=== PATIENT | female | born 1940 | race Caucasian/White ===

== ENCOUNTER 2017-02-11 04:46 | Inpatient (IN) ==
[2017-02-11] MEDS ORDERED: SODIUM CHLORIDE 0.9% 500 ML IV STA (05:19)
--- NOTE | 2017-02-11 05:30 | Emergency Department Note ---
Ahmet Sims Hilary, am scribing for, and in the presence of, Moses Fields MD 05:21. Donnie Sims Robert M, MD, personally performed the services described in this documentation, ascribed by Amairani Leo in my presence, and it is both accurate and complete 530 . Arrival - Arrival Chief Complaint: GI Bleed/Rectal ED Nursing Triage Note: Patient is a transfer from [facility] for GI bleed. States that patient began bleeding yesterday evening with bloody stools becoming progressi Patient has a hisotry of HTN, afib, anemia, diverticulitis and head and neck cancer. Mode of Arrival: Stretcher Limitations: Altered Mental Status Source: Patient, RN Notes Reviewed - History of Present Illness HPI Narrative: Pt is a 76 y/o white female brought into the as a transfer from [facility] for c/o a GI bleed. Pt is an extremely poor historian so hx is limited. Staff states that she has had two large bloody stools but pt is demented and cannot add to it. Onset (ago): hour(s) Date of Last Menstrual Period: menopause Allergies/Adverse Reactions: Allergies Allergy/AdvReac Type Severity Reaction Status Date / Time Oyycrrz-Byj-Yvd Reductase Allergy Severe Irritable Verified 09/20/16 15:00 Inhibitor meloxicam Allergy Unknown Unknown/Unable Verified 09/29/16 15:38 to obtain nitrofurantoin Allergy Unknown Unknown/Unable Verified 09/20/16 14:53 [From Macrodantin] to obtain Penicillins Allergy Unknown Unknown/Unable Verified 09/20/16 14:54 to obtain FLUCODANTIN Allergy Unknown Unknown/Unable Uncoded 09/20/16 14:59 to obtain Home Medications: Home Medications Medication Instructions Recorded Confirmed Type Venlafaxine [Effexor] 37.5 mg PO DAILY 09/23/16 02/04/17 History Omeprazole [Prilosec] 40 mg PO DAILY 09/28/16 02/04/17 History Fluticasone 50 Mcg Nasal [place] 2 spray BOTH NARES DAILY 09/29/16 02/04/17 History [Flonase Nasal [place]] Aspirin [Ecotrin] 81 mg PO DAILY 02/01/17 02/04/17 History Clorazepate [Tranxene] 7.5 mg PO Q8H 02/01/17 02/04/17 History Ferrous Sulfate [Iron] 325 mg PO DAILY 02/01/17 02/04/17 History Ibuprofen 200 mg PO DAILY 02/01/17 02/04/17 History Apixaban [Eliquis] 2.5 mg PO BID tablet 02/04/17 02/04/17 Rx Diltiazem Cd Cap [Cardizem CD] 120 mg PO DAILY capsule 02/04/17 02/04/17 Rx Diphenoxylate/Atrop 2.5-0.025 1 tablet PO BID tablet 02/04/17 02/04/17 Rx [Lomotil Tab] Lactobacillus Acidoph/Bulgar 1 tablet PO BID tablet 02/04/17 02/04/17 Rx [Lactinex Chew Tab] Review of System - Review of System ROS unobtainable: due to dementia Medical,Surgical,& Family Hx - Medical History Cardio: History of: Cardiac Dysrhythmia (A. 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 FORMER SMOKER) Genitourinary: History of: Recurring Urinary Tract Infections Gastrointestinal: History of: GERD, GI Problems (FEMORAL HERNIA) Musculoskeletal: History of: Musculoskeletal Problems (HX STAPH JAW) - Surgical History HEENT Surgeries: Surgical HX of: Tonsilectomy & Adenoidectomy Abdominal Surgeries: Surgical HX of: Appendectomy, Hernia Repair (HITAL) - Family History Family History: Reports;: Family Cancer (father - lung), Family Diabetes (father ), Family Heart Disease (mother), Family Hypertension Denies;: Family Psychiatric Problems, Family Stroke - Social History Smoking Status: Former smoker Frequency of Alcohol Use: None Type of Drug Use: None Exam Vital Signs: Vital Signs Temperature 99.9 F H 02/11/17 04:55 Pulse Rate 91 H 02/11/17 04:55 Respiratory Rate 20 02/11/17 04:55 Blood Pressure 171/54 02/11/17 04:55 O2 Sat by Pulse Oximetry 99 02/11/17 04:55 - General Exam limited due to: other (Dementia) General appearance: alert, in no apparent distress - Head Head exam: Present: atraumatic, normocephalic - Eye Eye exam: Present: normal appearance, PERRL, EOMI - ENT ENT exam: Present: mucous membranes moist, TM's normal bilaterally. Absent: mucous membranes dry - Neck Neck exam: Present: full ROM, trachea midline. Absent: tenderness - Chest Chest inspection: Present: symmetric chest wall rise. Absent: tenderness - Respiratory Respiratory exam: Present: normal lung sounds bilaterally. Absent: respiratory distress - Cardiovascular Cardiovascular exam: Present: regular rate, normal rhythm, normal heart sounds. Absent: murmur, rubs, gallop - Abdominal Exam Abdominal exam: Present: soft, distention (protuberant), normal bowel sounds. Absent: tenderness - Extremities Exam Extremities exam: Present: full ROM. Absent: tenderness - Back Exam Back exam: Present: full ROM. Absent: tenderness - Neurological Exam Neurological exam: Present: alert, CN II-XII intact - Psychiatric Psychiatric exam: Present: normal affect, normal mood - Skin Skin exam: Present: warm, dry, intact, normal color. Absent: rash Course - Consultations Consultation #1: The patient will be admitted to the hospitalist service. Time: 05:31 Results - Labs CBC & BMP: 02/11/17 05:15 Lab Results: I have reviewed the patients labs Disposition Clinical Impression: Lower GI bleed, Floor of mouth squamous cell carcinoma, Hypokalemia, Debility, Anemia Case discussed with: patient, patient's family Disposition: Still a Patient Condition: Stable Instructions: Gastrointestinal Bleeding (ED) Time of Disposition: 05:31
[2017-02-11 05:37] LABS: Basophils % 0.2 % (0.0-0.8); Eosinophils # 0.2 10*3/uL (0.0-0.87); Eosinophils % 2.1 % (0.00-10.9); Hematocrit 29.9 VOL% (35.7-47.0); Hemoglobin 9.6 GM/DL (12.0-16.0); Immature Granulocytes % 0.8 %; Immature Granulocytes Absolute 0.07 #; Lymphocytes # 0.5 10*3/uL (1.4-4.0); Lymphocytes % 5.2 % (21.3-54.2); Mean Corpuscular HGB Conc 32.1 GM/DL (32-36); Mean Corpuscular Hemoglobin 26 PG (27-34); Mean Corpuscular Volume 79.5 FL (87-102); Monocytes # 0.6 10*3/uL (0.11-0.8); Monocytes % 6.4 % (1.7-12.7); Neutrophils # 7.7 10*3/uL (1.4-7.4); Neutrophils % 85.3 % (38.7-73.9); Platelet Count 282 T/CUMM (130-400); Red Blood Count 3.76 MC/CUMM (3.8-5.5); Red Cell Distribution Width 19.4 % (9.3-17.3)
[2017-02-11 05:41] LABS: INR 1.2; PT Patient Result 12.3 SECS
[2017-02-11 05:56] LABS: Alanine Aminotransferase 10 U/L (13-56); Alkaline Phosphatase 50 U/L (45-117); Aspartate Amino Transferase 13 U/L (0-37); Bilirubin,Total < 0.39 MG/DL (0.2-1.0); Blood Urea Nitrogen 21 MG/DL (7-18); Calcium 8.7 MG/DL (8.5-10.1); Glucose 92 MG/DL (74-106); Osmolality,Calculated 275.8 MOS/KG (273-304); Potassium 3.9 MMOL/L (3.5-5.1); Sodium 137 MMOL/L (136-145); Total Protein 5.1 G/DL (6.4-8.3)
[2017-02-11] MEDS ORDERED: ACETAMINOPHEN 325 MG TABLET PO PRN (06:02)
[2017-02-11] MEDS ORDERED: ALBUTEROL 2.5 MG/3 ML NEB RESP TX PRN (06:02)
--- NOTE | 2017-02-11 06:12 | Hospitalist History & Physical ---
Assessment and Plan (1) Underweight Status: Chronic Current Visit: No (2) Anemia Status: Acute Current Visit: Yes (3) Debility Status: Acute Current Visit: Yes (4) Atrial fibrillation Status: Acute Current Visit: No (5) Lower GI bleed Status: Acute Assessment and plan: Our plan for this patient will be admitting her to the ICU. Go to hold her Eliquis. And restart her home medications once they are confirmed as appropriate. Will consult Dr. Lott to reevaluate the patient and see if she he thinks she needs colonscope evaluation for her GI bleed. We will draw serial H&H's and transfuse as needed Current Visit: Yes History of Present Illness Chief complaint: Maroon stools History of present illness: Ms. Blackwell is a 76 year old female with past medical history significant for irritable bowel syndrome, diverticulosis, carcinoma of the throat, hypertension , A. fib with, and recent admission to the hospital for diarrhea who presents to our hospital tonight as a transfer from [facility]. Patient was admitted to our hospital several days ago. She was admitted with A. fib with RVR and diarrhea. She was rate controlled and placed on Eliquis. She was transferred to [facility]. She is being transferred down for rehab. Patient supports historian. Apparently staff at these [facility] noted to large maroon bloody stools. Patient was transferred to our hospital for further evaluation I was consulted for admission. Home Medications Medication Instructions Recorded Confirmed Type Venlafaxine [Effexor] 37.5 mg PO DAILY 09/23/16 02/04/17 History Omeprazole [Prilosec] 40 mg PO DAILY 09/28/16 02/04/17 History Fluticasone 50 Mcg Nasal [place] 2 spray BOTH NARES DAILY 09/29/16 02/04/17 History [Flonase Nasal [place]] Aspirin [Ecotrin] 81 mg PO DAILY 02/01/17 02/04/17 History Clorazepate [Tranxene] 7.5 mg PO Q8H 02/01/17 02/04/17 History Ferrous Sulfate [Iron] 325 mg PO DAILY 02/01/17 02/04/17 History Ibuprofen 200 mg PO DAILY 02/01/17 02/04/17 History Apixaban [Eliquis] 2.5 mg PO BID tablet 02/04/17 02/04/17 Rx Diltiazem Cd Cap [Cardizem CD] 120 mg PO DAILY capsule 02/04/17 02/04/17 Rx Diphenoxylate/Atrop 2.5-0.025 1 tablet PO BID tablet 02/04/17 02/04/17 Rx [Lomotil Tab] Lactobacillus Acidoph/Bulgar 1 tablet PO BID tablet 02/04/17 02/04/17 Rx [Lactinex Chew Tab] Allergies Allergy/AdvReac Type Severity Reaction Status Date / Time Iqvjerw-Fmi-Gwo Reductase Allergy Severe Irritable Verified 09/20/16 15:00 Inhibitor meloxicam Allergy Unknown Unknown/Unable Verified 09/29/16 15:38 to obtain nitrofurantoin Allergy Unknown Unknown/Unable Verified 09/20/16 14:53 [From Macrodantin] to obtain Penicillins Allergy Unknown Unknown/Unable Verified 09/20/16 14:54 to obtain FLUCODANTIN Allergy Unknown Unknown/Unable Uncoded 09/20/16 14:59 to obtain Medical,Surgical,& Family Hx - Medical History Cardio: History of: Cardiac Dysrhythmia (A. 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 FORMER SMOKER) Genitourinary: History of: Recurring Urinary Tract Infections Gastrointestinal: History of: GERD, GI Problems (FEMORAL HERNIA) Musculoskeletal: History of: Musculoskeletal Problems (HX STAPH JAW) - Surgical History HEENT Surgeries: Surgical HX of: Tonsilectomy & Adenoidectomy Abdominal Surgeries: Surgical HX of: Appendectomy, Hernia Repair (HITAL) - Family History Family History: Reports;: Family Cancer (father - lung), Family Diabetes (father ), Family Heart Disease (mother), Family Hypertension Denies;: Family Psychiatric Problems, Family Stroke - Social History Smoking Status: Former smoker Frequency of Alcohol Use: None Type of Drug Use: None ROS unobtainable: due to dementia Exam - Constitutional Vitals: Period Temp Pulse Resp BP Sys/Guzman Pulse Ox Last 24 Hr 99.9 F-99.9 F 91-91 16-20 171-171/54-54 99 - General General appearance: alert, in no apparent distress - Head Head exam: Present: atraumatic, normocephalic - Eye Eye exam: Present: normal appearance, PERRL, EOMI - ENT ENT exam: Present: mucous membranes moist, TM's normal bilaterally. Absent: mucous membranes dry - Neck Neck exam: Present: full ROM, trachea midline. Absent: tenderness - Chest Chest inspection: Present: symmetric chest wall rise. Absent: tenderness - Respiratory Respiratory exam: Present: normal lung sounds bilaterally. Absent: respiratory distress - Cardiovascular Cardiovascular exam: Present: regular rate, normal rhythm, normal heart sounds. - Abdominal Exam Abdominal exam: Present: Mild abdominal tenderness appreciated - Extremities Exam Extremities exam: Present: full ROM. Absent: tenderness - Back Exam Back exam: Present: full ROM. Absent: tenderness - Neurological Exam Neurological exam: Present: alert, CN II-XII intact - Psychiatric Psychiatric exam: Present: normal affect, normal mood - Skin Skin exam: Present: warm, dry, intact, normal color. Absent: rash Results - Labs CBC & BMP: 02/11/17 05:15 02/11/17 05:15
[2017-02-11 06:43] LABS: Hypochromasia 2+
--- NOTE | 2017-02-11 06:47 | XRay Report ---
XR chest 1V portable Indication: Shortness of breath Comparison: None available Findings: The heart and mediastinum are normal in size and configuration. The pulmonary vascularity is normal in caliber. Lung volumes are increased with prominent bronchial markings. No lung infiltrates, effusions, pneumothorax or other abnormality is demonstrated. Impression: Chronic lung changes. No acute process. PROCEDURE INTERPRETED AT [facility] DEPARTMENT OF RADIOLOGY Final Report Signed by: Dr. Xander Hamlin
--- NOTE | 2017-02-11 09:06 | Operative Note ---
Date of procedure: 02/11/17 Pre-op diagnosis: Anemia with drop in hematocrit from 34-->29.9%, maroon stool Post-op diagnosis: other (No clear bleeding source seen in the esophagus/ stomach or duodenum. There was a single erosion that was biopsied and we will look for Helicobacter pylori as well as celiac sprue given this patient's malnutrition. Successful dilation of the esophagus to 54 Danish due to her low- grade dysphagia.) Procedure: PROCEDURE: Esophagogastroduodenoscopy (EGD) with cold biopsy for pathology and Savary dilation to 54 Danish by single pass Savary dilator REFERRING PHYSICIAN: Warner Meraz MD INDICATIONS: This patient last seen in consultation 02/02/17 with diarrhea, dysphagia, moderate malnutrition, and anemia. Her hematocrit at that time was 34% and she was not taken to upper or lower endoscopy. She was given Eliquis for atrial fibrillation and has started developing maroon stools. Workup now being initiated to follow this low-grade anemia since her hematocrit has decreased to 29.9%. The prior H&P was reviewed and interrim changes are as noted: ENDOSCOPIST: Mushtaq Lott MD ENDOSCOPE: Olympus Video 100 System upper endoscope ASA CLASS: 4E EXAM: CV: regular rate and rhythm respiratory: Clear without wheezes abdominal: active bowel sounds MEDICATION: Per nursing anesthesia protocol, see their notes PROCEDURE: After discussion of the potential risks and benefits of upper endoscopy, the informed consent was obtained. The patient was then placed in the left lateral decubitus position where sedation was achieved as noted above. Esophageal intubation was performed without difficulty, and the endoscope was advanced through the esophagus, stomach and duodenum. A slow withdrawal was then performed with retroflexion in the stomach for careful inspection of the incisura angularis, fundus and cardia. The scope was then returned to a neutral position and withdrawn through the esophagus. The patient tolerated the procedure well and without complication. BIOPSIES: Gastric antrum/body, duodenum PHOTOGRAPHS: Obtained FINDINGS: Hypopharynx and Larynx: Normal Esohagoscopy Upper and middle thirds: Normal Lower third normal Esophogastric junctions: Normal without evidence of stricturing, Espinosa 's or esophagitis. At the end of the case the patient was dilated to 54 Danish by single pass Savary dilator due to her history of dysphagia. There was basically no resistance and no heme noted on the dilator. Gastroscopy: Cardia/Fundus: Normal Body: Single erosion, biopsied otherwise mild patchy gastritis Antrum and pylorus mild patchy gastritis, biopsied no clear bleeding source, wire advanced into the stomach at the end of the case to facilitate Savary dilation above. Duodenoscopy: Bulb normal-appearing, no evidence of blood, biopsied for sprue Second and third portions: Normal-appearing, biopsied for sprue IMPRESSION: No clear bleeding source seen in the esophagus/stomach or duodenum. There was a single erosion that was biopsied and we will look for Helicobacter pylori as well as celiac sprue given this patient's malnutrition. Successful dilation of the esophagus to 54 Danish due to her low-grade dysphagia. RECOMMENDATIONS: Follow up for biopsy results in 1-2 weeks by phone [phone] Continue anti-gastroesophageal reflux measures (avoid carbonated and acidic beverages, avoid eating within 2 hours of bedtime, avoid tight fitting clothing , and elevate the front bed posts 6 inches prior to sleeping. We will have to leave the patient on a clear liquid diet and obtain consent for colonoscopy to occur on Tuesday. Observe the patient's hematocrit and transfuse as necessary over the weekend. Hold Eliquis for the present time. Patient has known history of diverticulosis and this may certainly be a diverticular bleed but we need to rule out colon cancer as well. Mushtaq Lott MD COPY TO: Warner Meraz MD Anesthesia: MAC Surgeon / Physician: Mushtaq Lott Estimated blood loss: minimal Specimens: other (Gastric antrum/body, duodenum) Condition: stable Disposition: post procedure unit (G.I. Suite) Results - Labs CBC & BMP: 02/11/17 05:15 02/11/17 05:15 Discharge Plan - Discharge Medications No Action Venlafaxine [Effexor] 37.5 mg PO DAILY Omeprazole [Prilosec] 40 mg PO DAILY Fluticasone 50 Mcg Nasal [place] [Flonase Nasal [place]] 2 spray BOTH NARES DAILY Clorazepate [Tranxene] 7.5 mg PO Q8H Ibuprofen 200 mg PO DAILY Ferrous Sulfate [Iron] 325 mg PO DAILY Aspirin [Ecotrin] 81 mg PO DAILY Apixaban [Eliquis] 2.5 mg PO BID tablet Diltiazem Cd Cap [Cardizem CD] 120 mg PO DAILY capsule Diphenoxylate/Atrop 2.5-0.025 [Lomotil Tab] 1 tablet PO BID tablet Lactobacillus Acidoph/Bulgar [Lactinex Chew Tab] 1 tablet PO BID tablet - Follow Up or Referral - Forms/Instructions Instructions: Gastrointestinal Bleeding (ED)
--- NOTE | 2017-02-11 09:13 | Anesthesia Post-Op ---
Anesthesia Post OP - Post Ansesthetic Evaluation Patient seen in post op: Yes Resp: within normal limits CV: within normal limits Mental: within normal limits Temp: within normal limits [id number]: within normal limits Nausea and Vomiting: within normal limits Pain: within normal limits Other:: Stable
--- NOTE | 2017-02-11 09:23 | Gastrointestinal Progress Note ---
Assessment and Plan (1) GI bleeding Status: Acute Assessment and plan: Please see my previous consultation done 2 weeks ago (02/02/17) on this patient for full details of her history and workup up to this point. Unlike on the patient's last admission the patient, she is having active bleeding at this time with maroon colored stools. It was unclear as to whether this was a brisk upper GI source versus lower GI source. Upper endoscopy has been performed at this time and the following was discovered: No clear bleeding source seen in the esophagus/stomach or duodenum. There was a single erosion that was biopsied and we will look for Helicobacter pylori as well as celiac sprue given this patient's malnutrition. Successful dilation of the esophagus to 54 [place] due to her low-grade dysphagia. We will need to have her on clear liquids over the weekend and prep her Tuesday for colonoscopy to occur on Tuesday. This bleeding was likely secondary to the Eliquis that she was given to treat her atrial fibrillation. Would suggest keeping this on hold until we can complete colonoscopy. Current Visit: Yes (2) Oropharyngeal dysphagia Status: Acute Assessment and plan: The patient was dilated to 54 [place] today to see whether this would help out with her dysphagic symptoms. She did appear to have slight amount of increased tone with insertion of the scope with the oropharynx, we did not experience any significant stricturing or resistance in the insertion of the 54 [place] Savary dilator. We will watch and see how she does with her clear liquids and other foods later in the admission. 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 Current Visit: Yes (4) Moderate malnutrition Status: Chronic Assessment and plan: Will observe her food intake over the next several days. In my opinion she does not require PEG tube yet but should receive supplements after her colonoscopy, to occur on Tuesday. Current Visit: No Gastroenterology - PN: Subj Interval history: Please see my consultation from 02/02/17 and follow-up note from 02/03/17 concerning this patient. Diya remains a very pleasant but highly demented 76- year-old white female who had been evaluated with dysphagia and nutrition as well as anemia to hematocrit of 34% on her last admission approximately 2 weeks ago. It was elected not to formally scope her above or below given the low- grade anemia and she was transferred over to [facility] to regain her strength. Unfortunately yesterday she started developing some maroon stools and had to be transferred back for GI workup. It was not known whether the blood was coming from above or below and so upper endoscopy was just performed today. The patient is having mild epigastric tenderness. She always has a slight amount of difficulty with swallowing and dilation was performed today. Exam (Progress Note) - Constitutional Vitals: Period Temp Pulse Resp BP Sys/Guzman Pulse Ox Last 24 Hr 99.9 F-99.9 F 88-100 16-20 118-171/51-084 94-100 General appearance: no acute distress - Head Head exam: Present: normocephalic - Eye Eye exam: Present: EOMI Pupils: Present: JADYN - Respiratory Respiratory exam: Present: clear to auscultation bilaterally - Cardiovascular Cardiovascular exam: Present: regular rate and rhythm - GI/Abdominal GI/Abdominal exam: Present: normal bowel sounds, tenderness (Epigastric region) , soft. Absent: distended, guarding, rebound - Extremities Exam Extremities exam: Absent: edema - Neurological Exam Neurological exam: Present: alert, altered (Patient is very demented but certainly can converse fluently, she has very bad recall) - Psychiatric Psychiatric exam: Present: normal affect, normal mood - Skin Skin exam: Present: warm Results - Labs CBC & BMP: 02/11/17 05:15 02/11/17 05:15 Specialty Discharge - Follow Up or Referrals
[2017-02-11 10:25] LABS: Hematocrit 29.1 VOL% (35.7-47.0)
[2017-02-11] MEDS: PANTOPRAZOLE 40 MG VIAL IV SCH ×2 (11:42→19:59)
--- NOTE | 2017-02-11 11:43 | Hospitalist Progress Note ---
Assessment and Plan (1) GI bleeding Status: Acute Assessment and plan: EGD shows no clear source of bleeding there is one single erosion that was biopsied. She had successful dilatation of esophagus. Colonoscopy on Tuesday Current Visit: Yes (2) Acute blood loss anemia Status: Acute Assessment and plan: Patient's hemoglobin has been stable at 9. Will write an as needed transfusion order if less than 8 will need 2 units. Current Visit: Yes (3) Moderate malnutrition Status: Chronic Assessment and plan: clear liquids for now Current Visit: No (4) Hypertension Status: Chronic Assessment and plan: will restart dilt 120 Current Visit: No (5) Oropharyngeal dysphagia Status: Acute Assessment and plan: Patient was noted to have a stricture on EGD which has been dilated Current Visit: Yes (6) Atrial fibrillation Status: Acute Assessment and plan: currently on diltiazem, asa and eliquis Current Visit: No Hospitalist: Subjective Interval history: Patient is awake and alert after her procedure. She will remain on clear liquids. We plan for a colonoscopy on Tuesday. We will continue to do serial hemoglobins. Based on the results of the EGD no active bleeding where was found. Discussed CODE STATUS with patient's daughter but she was unaware of what her living will set. She will review it and get back to us sometime today. Exam - Constitutional Vitals: Period Temp Pulse Resp BP Sys/Guzman Pulse Ox Last 24 Hr 99.9 F-99.9 F 80-100 16-22 118-171/48-084 94-100 Exam: Heart Rate-[RRR] Lungs-[CTAB] GI-[+bs soft, NT] Ext-[no edema] Neuro [Motor 5/5], [alert and oriented times 3] psych [normal mood and affect] General [no acute distress] Results - Labs CBC & BMP: 02/11/17 10:18 02/11/17 05:15 Lab Results: I have reviewed the past 24 hour labs - Diagnostic Findings Procedure: Chest x-ray: report reviewed by me (copd) Specialty Discharge - Follow Up or Referrals
[2017-02-11] MEDS ORDERED: SODIUM CHLORIDE 0.9% 250 ML IV PRN (11:46)
[2017-02-11 13:35] LABS: Hematocrit 28.5 VOL% (35.7-47.0)
[2017-02-11] MEDS: VENLAFAXINE 37.5 MG TABLET PO SCH (16:32)
[2017-02-11] MEDS: DILTIAZEM CD 120 MG CAPSULE PO SCH (16:32)
[2017-02-11 17:21] LABS: Hematocrit 30.2 VOL% (35.7-47.0); Hemoglobin 9.4 GM/DL (12.0-16.0)
[2017-02-11] MEDS: DESITIN 4OZ/NYSTATIN 15 GRAM MIXTURE PASTE TOP SCH (20:33)
[2017-02-11] MEDS ORDERED: MAGNESIUM CITRATE 300 ML BOTTLE PO ONE (21:00)
[2017-02-11 22:31] LABS: Hematocrit 28.9 VOL% (35.7-47.0); Hemoglobin 9.1 GM/DL (12.0-16.0)
[2017-02-12 04:38] LABS: Basophils % 0.6 % (0.0-0.8); Eosinophils # 0.1 10*3/uL (0.0-0.87); Eosinophils % 2.6 % (0.00-10.9); Hematocrit 29.8 VOL% (35.7-47.0); Hemoglobin 9.5 GM/DL (12.0-16.0); Immature Granulocytes % 0.9 %; Immature Granulocytes Absolute 0.05 #; Lymphocytes # 0.5 10*3/uL (1.4-4.0); Lymphocytes % 9.6 % (21.3-54.2); Mean Corpuscular HGB Conc 31.9 GM/DL (32-36); Mean Corpuscular Hemoglobin 26 PG (27-34); Mean Platelet Volume 10.2 FL (9.6-12.0); Monocytes # 0.7 10*3/uL (0.11-0.8); Monocytes % 12.8 % (1.7-12.7); Neutrophils # 3.9 10*3/uL (1.4-7.4); Neutrophils % 73.5 % (38.7-73.9); Platelet Count 290 T/CUMM (130-400); Red Blood Count 3.68 MC/CUMM (3.8-5.5); Red Cell Distribution Width 19.3 % (9.3-17.3); White Blood Count 5.3 T/CUMM (4-12)
[2017-02-12 05:17] LABS: Calcium 8.4 MG/DL (8.5-10.1); Osmolality,Calculated 276.5 MOS/KG (273-304); Potassium 3.8 MMOL/L (3.5-5.1)
[2017-02-12 05:31] LABS: Band Neutrophils 6 % (0-10); Eosinophils 1 % (0-10); Lymphocytes 10 % (20-55); Platelet Estimate Normal; Segmented Neutrophils 75 % (50-85); Total Cells Counted 100
[2017-02-12] MEDS: DILTIAZEM CD 120 MG CAPSULE PO SCH (08:48)
[2017-02-12] MEDS: VENLAFAXINE 37.5 MG TABLET PO SCH (08:49)
[2017-02-12] MEDS: PANTOPRAZOLE 40 MG VIAL IV SCH ×2 (08:49→20:29)
[2017-02-12] MEDS: DESITIN 4OZ/NYSTATIN 15 GRAM MIXTURE PASTE TOP SCH ×2 (08:56→20:33)
[2017-02-12] MEDS: FLUTICASONE 50 MCG NASAL SPRAY 16 GM BOTTLE BOTH NARES SCH (08:57)
--- NOTE | 2017-02-12 10:58 | Event Note ---
Chief complaint GI bleed Patient is alert without complaints of any pain. No bleeding is been reported EGD yesterday was unrevealing and plans for colonoscopy for Tuesday are noted. Her hematocrit has remained stable overnight. She is tolerating p.o. liquids without complaint. Review of systems no shortness of breath or chest pain On exam vital signs are stable as recorded in the record Sclerae anicteric She is alert and oriented 3 Lungs clear to auscultation no respiratory distress Heart regular rate and rhythm no murmur, no edema Abdomen soft nondistended nontender no masses Extremities no clubbing cyanosis or edema all 4 extremities Recommendations: Continue to observe for signs symptoms of active bleeding transfuse as needed proceed with plans for colonoscopy on Tuesday.
--- NOTE | 2017-02-12 13:57 | Hospitalist Progress Note ---
Assessment and Plan (1) GI bleeding Status: Acute Assessment and plan: s/p EGD and Colonoscopy on Tuesday Current Visit: Yes (2) Acute blood loss anemia Status: Acute Assessment and plan: Patient's hemoglobin has been stable at 9. will move out of CCU Current Visit: Yes (3) Moderate malnutrition Status: Chronic Assessment and plan: clear liquids per dr. Lott Current Visit: No (4) Hypertension Status: Chronic Assessment and plan: controlled Current Visit: No (5) Oropharyngeal dysphagia Status: Acute Assessment and plan: s/p dilation of stricture Current Visit: Yes (6) Atrial fibrillation Status: Acute Assessment and plan: cont dilt, hold asa and eliquis Current Visit: No Hospitalist: Subjective Interval history: hgb stable, colonoscopy on Tuesday Exam - Constitutional Vitals: Period Temp Pulse Resp BP Sys/Guzman Pulse Ox Last 24 Hr 97.2 F-99.3 F 75-98 14-26 101-138/43-73 95-99 Exam: Heart Rate-[RRR] Lungs-[CTAB] GI-[+bs soft, NT] Ext-[no edema] Neuro [Motor 5/5], [alert and oriented times 3] psych [normal mood and affect] General [no acute distress] Results - Labs CBC & BMP: 02/12/17 04:14 02/12/17 04:14 Lab Results: I have reviewed the past 24 hour labs Specialty Discharge - Follow Up or Referrals
--- NOTE | 2017-02-13 08:11 | Hospitalist Progress Note ---
Assessment and Plan (1) Acute blood loss anemia Status: Acute Current Visit: Yes (2) Lower GI bleed Status: Acute Current Visit: Yes (3) Atrial fibrillation Status: Acute Current Visit: No Qualifiers: Atrial fibrillation type: paroxysmal Qualified Code(s): I48.0 - Paroxysmal atrial fibrillation (4) Hypertension Status: Chronic Current Visit: No (5) Moderate malnutrition Status: Chronic Assessment and plan: -Blood count stable, continue to monitor hematocrit -Patient scheduled for colonoscopy in a.m. -Continue clear liquids -Continue current medications, including diltiazem, pulse rate currently controlled -Hold Eliquis and aspirin due to GI bleeding Current Visit: No Hospitalist: Subjective Interval history: The patient is an 76-year-old female admitted to the hospital with acute lower GI bleed associated with anticoagulation with Eliquis. The patient also has Alzheimer's dementia and is a poor historian. She denies any further bleeding overnight. She is undergone an EGD during the hospitalization which did not reveal any evidence of upper GI bleeding. Colonoscopy is scheduled for tomorrow. At the time of my examination the patient denies any abdominal pain, chest pain, shortness of breath or hematochezia. Exam - Constitutional Vitals: Period Temp Pulse Resp BP Sys/Guzman Pulse Ox Last 24 Hr 96.2 F-98.7 F 65-95 16-22 101-159/46-76 90-98 General appearance: under weight, cachectic - Head Head exam: Present: normal inspection - Eye Eye exam: Present: EOMI Pupils: Present: JADYN - ENT ENT exam: Present: normal exam, normal oropharynx - Neck Neck exam: Present: normal inspection - Respiratory Respiratory exam: Present: clear to auscultation bilaterally. Absent: chest wall tenderness, rhonchi, wheezes - Cardiovascular Cardiovascular exam: Present: regular rate and rhythm. Absent: irregular rhythm , tachycardia - GI/Abdominal GI/Abdominal exam: Present: normal bowel sounds, soft. Absent: ascites, distended, tenderness - Extremities Exam Extremities exam: Present: normal inspection. Absent: edema - Neurological Exam Neurological exam: Present: altered (Patient confused, disoriented but responsive and follows commands) - Psychiatric Psychiatric exam: Absent: agitated - Skin Skin exam: Present: normal color. Absent: erythema, rash Results - Labs CBC & BMP: 02/13/17 02:25 02/12/17 04:14 Lab Results: I have reviewed the past 24 hour labs (Hemoglobin stable) Specialty Discharge - Follow Up or Referrals
[2017-02-13] MEDS: VENLAFAXINE 37.5 MG TABLET PO SCH (08:41)
[2017-02-13] MEDS: FLUTICASONE 50 MCG NASAL SPRAY 16 GM BOTTLE BOTH NARES SCH (08:41)
[2017-02-13] MEDS: BISACODYL 5 MG TABLET PO SCH ×2 (08:41→16:46)
[2017-02-13] MEDS: PANTOPRAZOLE 40 MG VIAL IV SCH ×2 (08:41→20:42)
[2017-02-13] MEDS: DILTIAZEM CD 120 MG CAPSULE PO SCH (08:42)
[2017-02-13] MEDS: DESITIN 4OZ/NYSTATIN 15 GRAM MIXTURE PASTE TOP SCH ×2 (11:32→20:43)
--- NOTE | 2017-02-13 12:11 | Event Note ---
Chief complaint GI bleeding Patient without complaints of pain she is eating her clear liquid diet without nausea vomiting no further bleeding is been reported. No blood work is been drawn on her today. Plans for colonoscopy tomorrow reaffirmed with the patient and she is agreeable. We will start her prep later today. Review of systems she denies any shortness of breath chest pain no nausea vomiting On exam vital signs are stable sclerae anicteric lids conjunctiva is unremarkable neck is supple Lungs clear to auscultation no respiratory distress Heart regular rate rhythm no murmur no edema Abdomen soft nondistended nontender no masses no ascites Extremities no clubbing cyanosis or edema all 4 extremities. Recommendations: 1. GI bleed plan for colonoscopy in a.m. with Dr. Lott prep to initiate today. Patient is agreeable to proceeding.
[2017-02-13] MEDS ORDERED: POLYETHYLENE GLYCOL POWDER 255 GM BOTTLE PO ONE (16:00)
[2017-02-13] MEDS ORDERED: MAGNESIUM CITRATE 300 ML BOTTLE PO ONE (21:00)
[2017-02-14] MEDS: BISACODYL 5 MG TABLET PO SCH (01:10)
[2017-02-14] MEDS: DILTIAZEM CD 120 MG CAPSULE PO SCH ×2 (07:36→08:13)
[2017-02-14] MEDS: PANTOPRAZOLE 40 MG VIAL IV SCH ×2 (07:36→08:13)
--- NOTE | 2017-02-14 07:56 | Operative Note ---
Date of procedure: 02/14/17 Pre-op diagnosis: Diarrhea 2-4 times per day, mild malnutrition, anemia Hgb 9 Post-op diagnosis: other (This patient appears to have pseudomembranous colitis which is involving her entire colon. There is an element of diverticulitis as well in the low sigmoid. Large internal and external hemorrhoids noted. No polyps were seen.) Procedure: PROCEDURE: Colonoscopy with cold biopsy for pathology REFERRING PHYSICIAN: Alee Duran MD INDICATIONS: Diarrhea chronically, abnormal weight loss the prior H&P was reviewed and interrim changes are as noted: ENDOSCOPIST: Mushtaq Lott MD ENDOSCOPE: Rebls Video 100 System colonoscope COLON PREPARATION: 238 gm of PEG containing laxative and 1.9 liters of gatoraid/sports drink and dulcolax 15 mg q8 hours x 3 ASA CLASS: 4 EXAM: CV: regular rate and rhythm Respiratory: Clear without wheezes Abdominal: active bowel sounds Rectal: Good tone, no fissures or fistulas MEDICATION: Per nursing anesthesia protocol, see their notes PROCEDURE: After discussion of the potential risks and benefits of colonoscopy, the informed consent was obtained, from patient or health care surrogate. The patient was then placed in the left lateral decubitus position where sedation was achieved as noted above. Rectal examination was followed by insertion of the colonoscope. The colonoscope was passed under direct visualization to the cecum. Advancement was facilitated by insertion/withdrawl techniques, abdominal pressure and patient positioning. Once the cecal pole was reached, slow withdrawal was performed with the findings as noted below. The patient tolerated the procedure well and without complication. QUALITY OF PREP: Excellent WITHDRAWL TIME: 8 minutes 35 seconds BIOPSIES: Cecum/ascending, descending/sigmoid PHOTOGRAPHS: Obtained FINDINGS: The musoca appeared normal in the following regions: splenic flexure , transverse colon, and hepatic flexure. Position within the cecum was confirmed by ileocecal valve, appendiceal oriface, and the convergence of folds (crows foot). No mass or AVM was noted throughout the colon. The patient had a great deal of swelling and inflammation of the diverticuli in the low sigmoid with circumferential swelling and edema noted of the mcdonnell. Heavy left-sided diverticulosis noted, some of these with inflammation in the low sigmoid. Multiple pseudomembranes noted particularly bad in the sigmoid descending regions but also all the way up into the cecum suspicious for pseudomembranous colitis, biopsies obtained. Moderate size internal and large external hemorrhoids noted with some inflammation. Intubation of the TI was achieved x 5 cm with normal appearence--no evidence of Crohn's. 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 There is an element of diverticulitis as well in the low sigmoid. Large internal and external hemorrhoids noted. No polyps were seen. RECOMMENDATIONS: High fiber diet Repeat colonosocopy will be in 10 years Citrucel 1 tablespoon in 12 oz juice BID: 1 bottle: :11 Vancomycin 125 mg by elixir 4 times daily 14 days. Follow up by phone for biopsy results in 1-2 weeks by phone Hold off on further oral antibiotics other than the Vanco. Mushtaq Lott MD COPY TO: Alee Duran MD Anesthesia: MAC Surgeon / Physician: Mushtaq Lott Estimated blood loss: minimal Specimens: other (Cecum/ascending, descending/sigmoid) Condition: stable Disposition: post procedure unit (G.I. Suite) Results - Labs CBC & BMP: 02/14/17 04:31 02/12/17 04:14 Discharge Plan - Discharge Medications No Action Venlafaxine [Effexor] 37.5 mg PO DAILY Omeprazole [Prilosec] 40 mg PO DAILY Fluticasone 50 Mcg Nasal [place] [Flonase Nasal [place]] 2 spray BOTH NARES DAILY Clorazepate [Tranxene] 7.5 mg PO Q8H Ibuprofen 200 mg PO DAILY Ferrous Sulfate [Iron] 325 mg PO DAILY Aspirin [Ecotrin] 81 mg PO DAILY Apixaban [Eliquis] 2.5 mg PO BID tablet Diltiazem Cd Cap [Cardizem CD] 120 mg PO DAILY capsule Diphenoxylate/Atrop 2.5-0.025 [Lomotil Tab] 1 tablet PO BID tablet Lactobacillus Acidoph/Bulgar [Lactinex Chew Tab] 1 tablet PO BID tablet - Follow Up or Referral - Forms/Instructions Instructions: Gastrointestinal Bleeding (ED)
--- NOTE | 2017-02-14 08:30 | Gastrointestinal Progress Note ---
Assessment and Plan (1) GI bleeding Status: Acute Assessment and plan: Please see my previous consultation done 2 weeks ago (02/02/17) on this patient for full details of her history and workup up to this point. Unlike on the patient's last admission the patient, she is having active bleeding at this time with maroon colored stools. It was unclear as to whether this was a brisk upper GI source versus lower GI source. Upper endoscopy has been performed at this time and the following was discovered: No clear bleeding source seen in the esophagus/stomach or duodenum. There was a single erosion that was biopsied and we will look for Helicobacter pylori as well as celiac sprue given this patient's malnutrition. Successful dilation of the esophagus to 54 [place] due to her low-grade dysphagia. We will need to have her on clear liquids over the weekend and prep her Tuesday for colonoscopy to occur on Tuesday. This bleeding was likely secondary to the Eliquis that she was given to treat her atrial fibrillation. Would suggest keeping this on hold until we can complete colonoscopy. 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 There is an element of diverticulitis as well in the low sigmoid- -this may been the source of the patient's recent bleeding. Large internal and external hemorrhoids noted. No polyps were seen. Routine biopsies taken to rule out the pseudomembranous colitis however I am going to start the patient on oral vancomycin today to get her diarrhea under better control. Current Visit: Yes (2) Oropharyngeal dysphagia Status: Acute Assessment and plan: The patient was dilated to 54 [place] today to see whether this would help out with her dysphagic symptoms. She did appear to have slight amount of increased tone with insertion of the scope with the oropharynx, we did not experience any significant stricturing or resistance in the insertion of the 54 [place] Savary dilator. We will watch and see how she does with her clear liquids and other foods later in the admission. 02/14/17--the patient appears to be doing better on IV Protonix and post dilation. She is able to eat better and I am going to start her on a soft mechanical diet. She has continued weight loss and hopefully will not require PEG tube placement. 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 02/14/17--swelling continued to do well over the weekend. The patient is being advanced as far as her diet at this point. Current Visit: Yes (4) Moderate malnutrition Status: Chronic Assessment and plan: Will observe her food intake over the next several days. In my opinion she does not require PEG tube yet but should receive supplements after her colonoscopy, to occur on Tuesday. 02/14/17--the patient has done well with the dilation, we are advancing her diet at this time. I suspect she will do much better as her C. difficile is treated and she regains normal number of stools per day. We need to watch and make sure that she is off of antibiotics. The bleeding that she was earlier experiencing may been coming from the diverticuli in the left colon that appeared grossly inflamed. Biopsies are pending. Current Visit: No Gastroenterology - PN: Subj Interval history: The patient did well with 2-4 bowel movements over the weekend Exam (Progress Note) - Constitutional Vitals: Period Temp Pulse Resp BP Sys/Guzman Pulse Ox Last 24 Hr 97.6 F-98.8 F 71-92 16-80 111-151/42-85 90-100 General appearance: mild distress - Eye Eye exam: Present: EOMI - Neck Neck exam: Present: normal inspection - Respiratory Respiratory exam: Present: clear to auscultation bilaterally - Cardiovascular Cardiovascular exam: Present: regular rate and rhythm - GI/Abdominal GI/Abdominal exam: Present: normal bowel sounds, tenderness (Minimal diffuse tenderness), soft. Absent: distended, guarding, rebound - Extremities Exam Extremities exam: Absent: edema - Neurological Exam Neurological exam: Present: alert, oriented X3, CN II-XII intact. Absent: motor sensory deficit - Psychiatric Psychiatric exam: Present: normal affect, normal mood - Skin Skin exam: Present: warm Results - Labs CBC & BMP: 02/14/17 04:31 02/12/17 04:14 Specialty Discharge - Follow Up or Referrals
--- NOTE | 2017-02-14 08:50 | Anesthesia Post-Op ---
Anesthesia Post OP - Post Ansesthetic Evaluation Patient seen in post op: Yes Resp: within normal limits CV: within normal limits Mental: within normal limits Temp: within normal limits [id number]-Ojsltosmc: within normal limits Nausea and Vomiting: within normal limits Pain: within normal limits
[2017-02-14] MEDS: VENLAFAXINE 37.5 MG TABLET PO SCH (10:08)
[2017-02-14] MEDS: FLUTICASONE 50 MCG NASAL SPRAY 16 GM BOTTLE BOTH NARES SCH (10:08)
[2017-02-14] MEDS: DESITIN 4OZ/NYSTATIN 15 GRAM MIXTURE PASTE TOP SCH ×2 (10:09→21:10)
[2017-02-14] MEDS: VANCOMYCIN 50 MG/ML 60 ML/BOTTLE PO SCH ×5 (10:09→21:10)
--- NOTE | 2017-02-14 11:28 | Hospitalist Progress Note ---
Assessment and Plan (1) Lower GI bleed Status: Acute Assessment and plan: Impression: 1. Lower GI bleed 2. Pseudomembranous colitis 3. Atrial fibrillation, paroxysmal Plan: GI has already adjusted her antibiotics. We will continue current care. This note was completed using [employer] voice recognition software. There may be resident care spec errors as a result. Current Visit: Yes Hospitalist: Subjective Interval history: Follow-up lower GI bleed, atrial fibrillation, and malnutrition. The patient is just returned from colonoscopy. She apparently was found to have pseudomembranes throughout the colon, and will now be treated for C. difficile colitis despite a negative C. difficile test. I suspect that this was present on admission. The patient is without any complaints at this time. Exam - Constitutional Vitals: Period Temp Pulse Resp BP Sys/Guzman Pulse Ox Last 24 Hr 97.6 F-98.8 F 64-92 16-80 111-137/42-85 90-100 Vital signs are noted above. Heart is regular with distant tones. Chest is clear with no rales or wheezes. Abdomen is soft with positive bowel sounds. She is awake and alert. Results - Labs CBC & BMP: 02/14/17 04:31 02/12/17 04:14 Lab Results: I have reviewed the past 24 hour labs Specialty Discharge - Follow Up or Referrals
--- NOTE | 2017-02-14 12:21 | Pathology Report from [facility] ---
[facility] – [place] ACCESSION # : [id number] PATIENT NAME : Katherin Blackwell ORDERING DR : Mushtaq Lott MD CLINICAL HX: GI bleed; #1 R/O Sprue #2 Gastritis POST-OP DX: Same SPECIMEN INFO: #1 Small bowel BXS #2 SULEIMAN GROSS DESCRIPTION: Received in formalin in two parts labeled:#1 KATHERIN BLACKWELL & #1 are two hernández tissue fragments measuring 0.8 x 0.2 cm collectively submitted in cassette #1.#2 KATHERIN BLACKWELL & #2 is a 0.6 x 0.6 cm aggregate of hernández tissue submitted in cassette #2. DIAGNOSIS FOR KATHERIN BLACKWELL: #1 SMALL BOWEL BIOPSIES: Mild chronic non- specific duodenitis with normal villous architecture. No evidence of granulomas , parasites, tumor, or celiac disease.#2 SULEIMAN BIOPSIES: Chronic superficial gastritis. H. pylori not seen on special stain. COLLECTED DATE: 02/11/2017 [facility] REPORT DATE: 02/14/2017 ELECTRONICALLY SIGNED BY: Bin Duggan M.D. 02/14/2017 - 10:42:27 [facility]
[2017-02-14] MEDS: PANTOPRAZOLE 40 MG TABLET PO SCH (18:17)
--- NOTE | 2017-02-15 06:53 | Gastrointestinal Progress Note ---
Assessment and Plan (1) GI bleeding Status: Acute Assessment and plan: Please see my previous consultation done 2 weeks ago (02/02/17) on this patient for full details of her history and workup up to this point. Unlike on the patient's last admission the patient, she is having active bleeding at this time with maroon colored stools. It was unclear as to whether this was a brisk upper GI source versus lower GI source. Upper endoscopy has been performed at this time and the following was discovered: No clear bleeding source seen in the esophagus/stomach or duodenum. There was a single erosion that was biopsied and we will look for Helicobacter pylori as well as celiac sprue given this patient's malnutrition. Successful dilation of the esophagus to 54 [place] due to her low-grade dysphagia. We will need to have her on clear liquids over the weekend and prep her Tuesday for colonoscopy to occur on Tuesday. This bleeding was likely secondary to the Eliquis that she was given to treat her atrial fibrillation. Would suggest keeping this on hold until we can complete colonoscopy. 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 There is an element of diverticulitis as well in the low sigmoid- -this may been the source of the patient's recent bleeding. Large internal and external hemorrhoids noted. No polyps were seen. Routine biopsies taken to rule out the pseudomembranous colitis however I am going to start the patient on oral vancomycin today to get her diarrhea under better control. 02/15/17--Continue feeding patient, I think she probably does require some Protonix at least once daily and nutritional supplements 3 times daily with her meals would likely help out. There is no Helicobacter pylori. Believe the bleeding was likely due to diverticular source in the sigmoid colon given the appearance of the diverticuli in this region. Pseudomembranous colitis seen throughout the colon which we are treating with vancomycin for at least the next 9 days. Prescription written for this along with the Protonix and left clip to the front of the chart. From my standpoint she seems stable and can go back to the retirement. I believe she is likely reached maximal benefits of her hospitalization at this point. Current Visit: Yes (2) Oropharyngeal dysphagia Status: Acute Assessment and plan: The patient was dilated to 54 [place] today to see whether this would help out with her dysphagic symptoms. She did appear to have slight amount of increased tone with insertion of the scope with the oropharynx, we did not experience any significant stricturing or resistance in the insertion of the 54 [place] Savary dilator. We will watch and see how she does with her clear liquids and other foods later in the admission. 02/14/17--the patient appears to be doing better on IV Protonix and post dilation. She is able to eat better and I am going to start her on a soft mechanical diet. She has continued weight loss and hopefully will not require PEG tube placement. 02/15/17 Doing well on oral Protonix, eating her diet now without difficulty. I do not believe that she is going to require PEG tube placement although it might need to discuss this on future admissions. Biopsies again were negative for celiac sprue and Helicobacter pylori but do show the gastritis and mild duodenitis being treated with the Protonix now. Prescription written in the front of the chart as mentioned. 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 02/14/17--swelling continued to do well over the weekend. The patient is being advanced as far as her diet at this point. 02/15/17--following up with Dr. Martinez for this. Given the lymph node status, likely cured from this cancer--will defer to him on future follow-up. Current Visit: Yes (4) Moderate malnutrition Status: Chronic Assessment and plan: Will observe her food intake over the next several days. In my opinion she does not require PEG tube yet but should receive supplements after her colonoscopy, to occur on Tuesday. 02/14/17--the patient has done well with the dilation, we are advancing her diet at this time. I suspect she will do much better as her C. difficile is treated and she regains normal number of stools per day. We need to watch and make sure that she is off of antibiotics. The bleeding that she was earlier experiencing may been coming from the diverticuli in the left colon that appeared grossly inflamed. Biopsies are pending. 6/27/17--likely a combination of poor swallowing post treatment of the squamous cell carcinoma and dysphagia now status post dilation, in addition to the patient's C. difficile which is now being treated. This is not yet been confirmed by biopsy but I suspect given the appearance of the colon this is most likely source for the patient's ongoing diarrhea. We will try and avoid antibiotics for the near future aside from the oral vancomycin liquid 125 mg 4 times daily 9 more days. Okay for discharge from my standpoint. Current Visit: No Gastroenterology - PN: Subj Interval history: Patient states that she passed a great deal of gas yesterday and a total of 2 bowel movements. She states that her pain in the abdomen is down to a 4 out of 10 in intensity. 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 Biopsies from her stomach have returned and show a mild chronic nonspecific duodenitis but no gross evidence of celiac sprue. There is a chronic superficial gastritis currently being treated with Protonix but no Helicobacter pylori is seen. No need for further antibiotics aside from those to treat the underlying C. difficile (pending biopsy results). Classic pseudomembranes seen through the colon from ascending all the way down to sigmoid. She will need a total course of 10 days of treatment for this with vancomycin, she may be 1 of those 20% to develop chronic C. difficile which case she might need a tapering dose if symptoms recur. Exam (Progress Note) - Constitutional Vitals: Period Temp Pulse Resp BP Sys/Guzman Pulse Ox Last 24 Hr 97.3 F-98.8 F 64-91 16-20 116-137/49-59 94-100 General appearance: no acute distress - Head Head exam: Present: normocephalic - Eye Eye exam: Present: EOMI - Respiratory Respiratory exam: Present: clear to auscultation bilaterally - Cardiovascular Cardiovascular exam: Present: regular rate and rhythm - GI/Abdominal GI/Abdominal exam: Present: normal bowel sounds, distended, firm, tenderness ( Mild tenderness in all quadrants, increased tympany bilateral upper quadrant). Absent: guarding, rebound - Extremities Exam Extremities exam: Present: edema - Neurological Exam Neurological exam: Present: alert, altered (Fairly demented) - Psychiatric Psychiatric exam: Present: normal affect, normal mood - Skin Skin exam: Present: warm Results - Labs CBC & BMP: 02/15/17 04:38 02/12/17 04:14 Specialty Discharge - Follow Up or Referrals
[2017-02-15] MEDS: VENLAFAXINE 37.5 MG TABLET PO SCH (09:07)
[2017-02-15] MEDS: PANTOPRAZOLE 40 MG TABLET PO SCH ×2 (09:07→18:51)
[2017-02-15] MEDS: DILTIAZEM CD 120 MG CAPSULE PO SCH (09:07)
--- NOTE | 2017-02-15 09:08 | Discharge Summary ---
Hospital Course - Hospital Course Hospital Course: Discharge diagnosis: 1. Pseudomembranous colitis 2. Lower GI bleed 3. Paroxysmal atrial fibrillation. The patient presented to the hospital with a lower GI bleed. She ended up having colonoscopy, and it showed pseudomembranes consistent with pseudomembranous colitis. Her C. difficile studies were negative, but she will nevertheless be treated as though she has a C. difficile infection due to findings at colonoscopy. She has been seen by GI this morning, and has been cleared for discharge back to her senior care. Medication reconciliation has been performed. Regular diet. Activity as tolerated. This note was completed using [employer] voice recognition software. There may be [facility] chemist errors as a result. Diagnosis - Discharge Diagnosis (1) Lower GI bleed Status: Acute Specialty Discharge - Follow Up or Referrals Discharge Plan - Discharge Data Disposition: Disch To Home/Self Care Condition at Discharge: Stable Discharge Diet: advance to your usual diet Activity: resume usual activities as tolerated Hygiene: no restrictions - Discharge Medications New Vancomycin Liquid 125 mg PO QID #1 bottle Continue Venlafaxine [Effexor] 37.5 mg PO DAILY Omeprazole [Prilosec] 40 mg PO DAILY Fluticasone 50 Mcg Nasal [place] [Flonase Nasal [place]] 2 spray BOTH NARES DAILY Clorazepate [Tranxene] 7.5 mg PO Q8H Ibuprofen 200 mg PO DAILY Ferrous Sulfate [Iron] 325 mg PO DAILY Aspirin [Ecotrin] 81 mg PO DAILY Apixaban [Eliquis] 2.5 mg PO BID tablet Diltiazem Cd Cap [Cardizem CD] 120 mg PO DAILY capsule Lactobacillus Acidoph/Bulgar [Lactinex Chew Tab] 1 tablet PO BID tablet Discontinued Diphenoxylate/Atrop 2.5-0.025 [Lomotil Tab] 1 tablet PO BID tablet - Follow Up or Referral - Forms/Instructions Instructions: Gastrointestinal Bleeding (ED) Exam - Constitutional Vitals: Period Temp Pulse Resp BP Sys/Guzman Pulse Ox Last 24 Hr 97.3 F-99.7 F 69-86 16-20 121-127/54-60 96-99 Vital signs are noted above. She is awake and alert. Heart is regular with no murmur. Lungs are clear. Abdomen is soft with good bowel sounds and no mass. Discharge Results Procedures and tests throughout hospitalization: Pending Orders 02/11/17 10:18 Red Blood Cells Leuko Red Routine Labs on day of discharge: Labs from last 24 hours 02/15/17 04:38 Hgb 8.3 L DS: Provider Date of admission: 02/11/17 06:02 Primary care physician: . No PCP Attending physician on admission: Warner Meraz MD Consults: 02/11/17 06:04 Consult to Physician [CONS] Routine Comment: GIB Consulting Provider: Mushtaq Lott 02/11/17 06:51 Consult to Anesthesiology [CONS] Routine Consulting Provider: Reason for Anesthesiology: Pre-op Clearance 02/11/17 10:41 Consult to Dietitian [CONS] Routine Reason for Dietitian: Other Discharging clinician: Jamel Bernabe MD Expected date of discharge: 02/15/17
[2017-02-15] MEDS: VANCOMYCIN 50 MG/ML 60 ML/BOTTLE PO SCH ×4 (09:09→20:52)
[2017-02-15] MEDS: FLUTICASONE 50 MCG NASAL SPRAY 16 GM BOTTLE BOTH NARES SCH (09:09)
[2017-02-15] MEDS: DESITIN 4OZ/NYSTATIN 15 GRAM MIXTURE PASTE TOP SCH ×2 (09:15→20:52)
--- NOTE | 2017-02-15 12:19 | Pathology Report from [facility] ---
[facility] ACCESSION # : [id number] PATIENT NAME : Katherin Blackwell ORDERING DR : Mushtaq Lott MD CLINICAL HX: Diarrhea POST-OP DX: Same SPECIMEN INFO: #1 Cecum/ascending colon #2 Descending colon/sigmoid GROSS DESCRIPTION: Received in formalin in two parts labeled:#1 KATHERIN BLACKWELL & #1 is a 0.5 x 0.4 cm aggregate of hernández tissue submitted in cassette #1.#2 KATHERIN BLACKWELL & #2 is a 0.7 x 0.5 cm aggregate of hernández tissue submitted in cassette #2. DIAGNOSIS FOR KATHERIN BLACKWELL: #1 CECUM/ASCENDING COLON BIOPSIES: Superficial chronic inflammation, benign lymphoid aggregates, focal superficial neutrophilic debris.#2 DESCENDING COLON/SIGMOID BIOPSIES: Superficial fibrinopurulent material/membrane; consistent with pseudomembranous colitis. COLLECTED DATE: 02/14/2017 [facility] REPORT DATE: 02/15/2017 ELECTRONICALLY SIGNED BY: Bin Duggan M.D. 02/15/2017 - 9:51:08 [facility]
--- NOTE | 2017-02-16 06:56 | Gastrointestinal Progress Note ---
Assessment and Plan (1) Diarrhea associated with pseudomembranous colitis Status: Acute Assessment and plan: This was confirmed by biopsy from colonoscopy. The patient remains on vancomycin which should be completed with a 4 times daily course for at least the next 8 days. The patient is due to go to rehabilitation/swing bed today Current Visit: Yes (2) Diverticulosis of colon with hemorrhage Status: Acute Assessment and plan: Likely the source the patient's bleeding given the appearance of the diverticuli in the left colon particularly the sigmoid. There appeared to be old blood and some mild infection in this region probably giving rise to the blood loss previously observed. No other bleeding source identified. Current Visit: Yes (3) Oropharyngeal dysphagia Status: Acute Assessment and plan: The patient was dilated to 54 [place] today to see whether this would help out with her dysphagic symptoms. She did appear to have slight amount of increased tone with insertion of the scope with the oropharynx, we did not experience any significant stricturing or resistance in the insertion of the 54 [place] Savary dilator. We will watch and see how she does with her clear liquids and other foods later in the admission. 02/14/17--the patient appears to be doing better on IV Protonix and post dilation. She is able to eat better and I am going to start her on a soft mechanical diet. She has continued weight loss and hopefully will not require PEG tube placement. 02/15/17 Doing well on oral Protonix, eating her diet now without difficulty. I do not believe that she is going to require PEG tube placement although it might need to discuss this on future admissions. Biopsies again were negative for celiac sprue and Helicobacter pylori but do show the gastritis and mild duodenitis being treated with the Protonix now. Prescription written in the front of the chart as mentioned. 02/16/17--patient is otherwise doing well, no need for PEG tube as she is taking nutrition well and is swallowing well. She still has mild malnutrition that hopefully will be corrected over time. Continue acid suppression with pantoprazole. There is no evidence of celiac sprue but positive for C. difficile which should improve her nutrition once this is completely treated. 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 02/14/17--swelling continued to do well over the weekend. The patient is being advanced as far as her diet at this point. 02/15/17--following up with Dr. Martinez for this. Given the lymph node status, likely cured from this cancer--will defer to him on future follow-up. Current Visit: Yes (5) Moderate malnutrition Status: Chronic Assessment and plan: Will observe her food intake over the next several days. In my opinion she does not require PEG tube yet but should receive supplements after her colonoscopy, to occur on Tuesday. 02/14/17--the patient has done well with the dilation, we are advancing her diet at this time. I suspect she will do much better as her C. difficile is treated and she regains normal number of stools per day. We need to watch and make sure that she is off of antibiotics. The bleeding that she was earlier experiencing may been coming from the diverticuli in the left colon that appeared grossly inflamed. Biopsies are pending. 02/15/17--likely a combination of poor swallowing post treatment of the squamous cell carcinoma and dysphagia now status post dilation, in addition to the patient's C. difficile which is now being treated. This is not yet been confirmed by biopsy but I suspect given the appearance of the colon this is most likely source for the patient's ongoing diarrhea. We will try and avoid antibiotics for the near future aside from the oral vancomycin liquid 125 mg 4 times daily 9 more days. Okay for discharge from my standpoint. 02/16/17--Patient will be discharged today to rehab/swing bed, will sign off at this time. Current Visit: No Gastroenterology - PN: Subj Interval history: Patient kept an additional day in order to arrange for swing bed/rehab. Pathology from the colonoscopy has come back and demonstrates positive pseudomembranous colitis. This confirms a C. difficile, and the necessity for vancomycin treatment. She is eating well, diarrhea is under control, no abdominal pain, ready to go back to the [facility] versus rehab today. Exam (Progress Note) - Constitutional Vitals: Period Temp Pulse Resp BP Sys/Guzman Pulse Ox Last 24 Hr 97.4 F-99.0 F 74-88 16-24 113-132/48-78 95-98 General appearance: mild distress - Head Head exam: Present: normocephalic - Eye Eye exam: Present: EOMI - ENT ENT exam: Present: normal exam - Neck Neck exam: Present: normal inspection - Respiratory Respiratory exam: Present: clear to auscultation bilaterally. Absent: rhonchi, stridor, wheezes - Cardiovascular Cardiovascular exam: Present: regular rate and rhythm - GI/Abdominal GI/Abdominal exam: Present: normal bowel sounds, soft. Absent: distended, tenderness, rebound - Extremities Exam Extremities exam: Absent: edema - Neurological Exam Neurological exam: Present: alert, oriented X3, altered (Demented) - Psychiatric Psychiatric exam: Present: normal affect, normal mood - Skin Skin exam: Present: warm Results - Labs CBC & BMP: 02/15/17 04:38 02/12/17 04:14 Specialty Discharge - Follow Up or Referrals
[2017-02-16 08:07] VITALS: BP 109/55
--- NOTE | 2017-02-16 08:18 | Event Note ---
Please see the discharge summary from yesterday. The patient was not able to be accepted at swing bed yesterday. She is going today. She is awake and conversant. Abdomen is soft without any tenderness. Heart is regular with no murmur. Lungs are clear. Medication reconciliation was performed yesterday. Regular diet. Activity as tolerated. This note was completed using [employer] voice recognition software. There may be [employer] erector errors as a result.
[2017-02-16] MEDS: VANCOMYCIN 50 MG/ML 60 ML/BOTTLE PO SCH (10:07)
[2017-02-16] MEDS: VENLAFAXINE 37.5 MG TABLET PO SCH (10:07)
[2017-02-16] MEDS: DILTIAZEM CD 120 MG CAPSULE PO SCH (10:07)
[2017-02-16] MEDS: FLUTICASONE 50 MCG NASAL SPRAY 16 GM BOTTLE BOTH NARES SCH (10:08)
[2017-02-16] MEDS: PANTOPRAZOLE 40 MG TABLET PO SCH (10:08)
[2017-02-16] MEDS: DESITIN 4OZ/NYSTATIN 15 GRAM MIXTURE PASTE TOP SCH (10:08)
== END 2017-02-16 10:25 | disposition swing bed (61) | DRG 371 ==
LOC: EDBD 04:46 → EDUNIT# 04:46 → N.ED 04:46 → SUATTDRO 06:02 → N.EDINP 06:02 → N.CC 06:18 → N.2E 02-12 13:23
PROVIDERS: ADMIT Internal Medicine; ATTEND Internal Medicine Geriatric Medicine
PROC: COLONBX (2017-02-14 07:00)

== ENCOUNTER 2017-09-08 17:52 | Inpatient (IN) ==
[2017-09-08] MEDS ORDERED: SODIUM CHLORIDE 0.9% 500 ML IV STA (18:21)
[2017-09-08 19:58] LABS: Basophils % 0.2 % (0.0-0.8); Eosinophils % 0.1 % (0.00-10.9); Hematocrit 30.6 VOL% (35.7-47.0); Hemoglobin 10.4 GM/DL (12.0-16.0); Immature Granulocytes % 0.6 %; Immature Granulocytes Absolute 0.05 #; Lymphocytes # 0.2 10*3/uL (1.4-4.0); Lymphocytes % 2.8 % (21.3-54.2); Mean Corpuscular Hemoglobin 29 PG (27-34); Mean Platelet Volume 9.9 FL (9.6-12.0); Monocytes # 0.6 10*3/uL (0.11-0.8); Monocytes % 6.8 % (1.7-12.7); Neutrophils # 7.8 10*3/uL (1.4-7.4); Neutrophils % 89.5 % (38.7-73.9); Platelet Count 262 T/CUMM (130-400); Red Cell Distribution Width 15.5 % (9.3-17.3); White Blood Count 8.7 T/CUMM (4-12)
[2017-09-08 20:10] LABS: Ammonia 19 UMOL/L (11-32); INR 1.1; PT Patient Result 11.2 SECS; Partial Thromboplastin Time 31.5 SECS (0-40)
[2017-09-08 20:14] LABS: Barbiturates Screen,Urine Negative (Negative); Benzodiazepines Screen,Urine Positive (Negative); Cannabinoid Screen,Urine Negative (Negative); Opiate Screen,Urine Negative (Negative); Phencyclidine Screen,Urine Negative (Negative)
[2017-09-08 20:16] LABS: Apearance,Urine CLOUDY (Clear); Bacteria,Urine Moderate /HPF (Few); Bilirubin,Urine Negative (Negative); Blood, Urine Negative (Negative); Glucose,Urine (UA) >=500 mg/dL (Negative); Hyaline Casts,Urine 5 /LPF (0-3); Ketones,Urine Negative (Negative); Mucus,Urine Occasional /LPF (Occasional); Nitrite,Urine Positive (Negative); Protein,Urine 100 MG/DL; RBC,Urine 2 /HPF (0-4); Squamous Epithelial Cell,Urine Occasional /HPF (0-10); Urine Color Yellow (Yellow); Urine Specific Gravity 1.016 (1.001-1.035); Urine Urobilinogen < 2.0 EU/DL (0.2-1.0); WBC,Urine 25 /HPF (0-6)
[2017-09-08 20:29] LABS: Alanine Aminotransferase 15 U/L (13-56); Albumin 3.1 G/DL (3.4-5.0); Alkaline Phosphatase 82 U/L (45-117); Aspartate Amino Transferase 15 U/L (0-37); Blood Urea Nitrogen 17 MG/DL (7-18); Calcium 8.5 MG/DL (8.5-10.1); Glucose 93 MG/DL (74-106); Osmolality,Calculated 254.4 MOS/KG (273-304); Potassium 3.9 MMOL/L (3.5-5.1); Sodium 126 MMOL/L (136-145); Total Protein 6.8 G/DL (6.4-8.3); Troponin I Only 0.034 NG/ML (0.00-0.045)
[2017-09-08] MEDS ORDERED: LEVOFLOXACIN INJ 750 MG in PREMIX 1 EACH IV STA (20:51)
[2017-09-08] MEDS ORDERED: LEVOFLOXACIN INJ 150 ML IV ONE (21:02)
[2017-09-08 22:05] LABS: Band Neutrophils 2 % (0-10); Lymphocytes 3 % (20-55); Segmented Neutrophils 84 % (50-85); Total Cells Counted 100
[2017-09-08 22:06] LABS: Platelet Estimate Normal
[2017-09-08] MEDS ORDERED: ONDANSETRON 4 MG/2 ML VIAL IV PRN (22:43)
[2017-09-08] MEDS: SODIUM CHLORIDE 0.9% 1,000 ML IV SCH (23:14)
[2017-09-08] MEDS ORDERED: ALBUTEROL/IPRATROPIUM 3 ML NEB RESP TX PRN (23:25)
[2017-09-09 02:37] LABS: Basophils % 0.2 % (0.0-0.8); Hematocrit 32.5 VOL% (35.7-47.0); Immature Granulocytes % 0.7 %; Immature Granulocytes Absolute 0.06 #; Lymphocytes # 0.3 10*3/uL (1.4-4.0); Lymphocytes % 3.1 % (21.3-54.2); Mean Corpuscular HGB Conc 33.8 GM/DL (32-36); Mean Corpuscular Hemoglobin 28 PG (27-34); Mean Corpuscular Volume 83.3 FL (87-102); Mean Platelet Volume 10.4 FL (9.6-12.0); Monocytes # 0.6 10*3/uL (0.11-0.8); Monocytes % 6.3 % (1.7-12.7); Neutrophils # 8.1 10*3/uL (1.4-7.4); Neutrophils % 89.7 % (38.7-73.9); Platelet Count 267 T/CUMM (130-400); Red Cell Distribution Width 15.5 % (9.3-17.3)
[2017-09-09 03:04] LABS: Calcium 8.9 MG/DL (8.5-10.1); Magnesium 1.7 MG/DL (1.8-2.4); Osmolality,Calculated 254.4 MOS/KG (273-304); Potassium 4.4 MMOL/L (3.5-5.1); Thyroid Stimulating Hormone 1.23 uIU/ml (0.358-3.74)
[2017-09-09 03:12] LABS: Band Neutrophils 3 % (0-10); Lymphocytes 9 % (20-55); Platelet Estimate Normal; Segmented Neutrophils 87 % (50-85); Total Cells Counted 100
[2017-09-09] MEDS ORDERED: ZIPRASIDONE 20 MG/1 ML VIAL IM PRN (03:32)
[2017-09-09] MEDS: MORPHINE 10 MG/1 ML VIAL IV PRN (11:36)
[2017-09-09] MEDS ORDERED: SKIN HEALING OINT (AQUAPHOR) 50 GM TUBE TOP PRN (11:53)
[2017-09-09] MEDS: SODIUM CHLORIDE 0.9% 1,000 ML IV SCH (14:29)
[2017-09-09] MEDS: ZINC OXIDE PASTE 113 GM TUBE TOP SCH (21:26)
[2017-09-09] MEDS: LEVOFLOXACIN INJ 750 MG in PREMIX 1 EACH IV SCH (23:44)
[2017-09-09 23:53] LABS: ABG Base Excess 5.8 MMOL/L (-2.5-2.5); ABG HCO3 29.5 MMOL/L (20-26); ABG Oxygen Saturation 91.4 % (95-100); ABG PCO2 45.4 MM HG (35-48); ABG PH 7.439 (7.35-7.45); ABG PO2 60.3 MM HG (80-95); ABG TCO2 27.6 MMOL/L (23-27); Allen Test Positive; Pt O2 Delivery Device Venturi Mask
[2017-09-09] MEDS ORDERED: DILTIAZEM 50 MG/10 ML VIAL IV ONE (23:55)
[2017-09-10 00:01] LABS: Basophils % 0.1 % (0.0-0.8); Hematocrit 32.3 VOL% (35.7-47.0); Hemoglobin 10.6 GM/DL (12.0-16.0); Immature Granulocytes % 0.4 %; Immature Granulocytes Absolute 0.03 #; Lymphocytes # 0.5 10*3/uL (1.4-4.0); Lymphocytes % 6.3 % (21.3-54.2); Mean Corpuscular HGB Conc 32.8 GM/DL (32-36); Mean Corpuscular Hemoglobin 28 PG (27-34); Mean Corpuscular Volume 85.7 FL (87-102); Mean Platelet Volume 10.2 FL (9.6-12.0); Monocytes # 0.6 10*3/uL (0.11-0.8); Monocytes % 7.4 % (1.7-12.7); Neutrophils # 6.8 10*3/uL (1.4-7.4); Neutrophils % 85.8 % (38.7-73.9); Platelet Count 257 T/CUMM (130-400); Red Blood Count 3.77 MC/CUMM (3.8-5.5); Red Cell Distribution Width 15.5 % (9.3-17.3); White Blood Count 7.9 T/CUMM (4-12)
[2017-09-10 00:07] LABS: Troponin I Only 0.04 NG/ML (0.00-0.045)
[2017-09-10] MEDS: DILTIAZEM INJ 100 MG in SODIUM CHLORIDE 0.9% 100 ML IV SCH ×2 (01:03→22:02)
[2017-09-10] MEDS: SODIUM CHLORIDE 0.9% 1,000 ML IV SCH ×2 (05:54→18:43)
[2017-09-10] MEDS: ZINC OXIDE PASTE 113 GM TUBE TOP SCH ×2 (08:35→20:13)
[2017-09-10] MEDS: MORPHINE 10 MG/1 ML VIAL IV PRN (10:16)
[2017-09-10] MEDS: LEVOFLOXACIN INJ 750 MG in PREMIX 1 EACH IV SCH (21:52)
[2017-09-11] MEDS: ZINC OXIDE PASTE 113 GM TUBE TOP SCH ×2 (08:52→22:12)
[2017-09-11] MEDS: SODIUM CHLORIDE 0.9% 1,000 ML IV SCH ×2 (08:54→22:30)
[2017-09-11 09:26] LABS: Basophils % 0.1 % (0.0-0.8); Hematocrit 32.9 VOL% (35.7-47.0); Immature Granulocytes % 0.5 %; Immature Granulocytes Absolute 0.04 #; Lymphocytes # 0.4 10*3/uL (1.4-4.0); Lymphocytes % 4.8 % (21.3-54.2); Mean Corpuscular HGB Conc 33.4 GM/DL (32-36); Mean Corpuscular Hemoglobin 29 PG (27-34); Mean Corpuscular Volume 85.2 FL (87-102); Mean Platelet Volume 9.8 FL (9.6-12.0); Monocytes # 0.6 10*3/uL (0.11-0.8); Monocytes % 8.1 % (1.7-12.7); Neutrophils # 6.7 10*3/uL (1.4-7.4); Neutrophils % 86.5 % (38.7-73.9); Platelet Count 249 T/CUMM (130-400); Red Blood Count 3.86 MC/CUMM (3.8-5.5); Red Cell Distribution Width 15.6 % (9.3-17.3); White Blood Count 7.7 T/CUMM (4-12)
[2017-09-11 09:46] LABS: Hypochromasia 1+; Lymphocytes 5 % (20-55); Ovalocytes Slight; Segmented Neutrophils 84 % (50-85); Total Cells Counted 100
[2017-09-11 09:47] LABS: Platelet Estimate Normal
[2017-09-11 09:57] LABS: Calcium 8.6 MG/DL (8.5-10.1); Magnesium 1.8 MG/DL (1.8-2.4); Osmolality,Calculated 264.4 MOS/KG (273-304); Potassium 2.9 MMOL/L (3.5-5.1)
[2017-09-11] MEDS ORDERED: MAGNESIUM SULF RIDER 4 GM in PREMIX 1 EACH IV PRN (10:05)
[2017-09-11] MEDS ORDERED: MAGNESIUM SULF RIDER 2 GM in PREMIX 1 EACH IV PRN (10:05)
[2017-09-11] MEDS ORDERED: POTASSIUM CHLORIDE INJ 50 MEQ in SODIUM CHLORIDE 0.9% 500 ML IV ONE (12:00)
[2017-09-11] MEDS: DILTIAZEM INJ 100 MG in SODIUM CHLORIDE 0.9% 100 ML IV SCH (14:19)
[2017-09-11 20:55] LABS: Calcium 8.3 MG/DL (8.5-10.1); Osmolality,Calculated 272.8 MOS/KG (273-304); Potassium 3.4 MMOL/L (3.5-5.1)
[2017-09-11] MEDS: LEVOFLOXACIN INJ 750 MG in PREMIX 1 EACH IV SCH (22:48)
[2017-09-12] MEDS: DILTIAZEM INJ 100 MG in SODIUM CHLORIDE 0.9% 100 ML IV SCH ×3 (01:49→23:11)
[2017-09-12] MEDS ORDERED: LORazepam 2 MG/1 ML VIAL IV ONE (06:36)
[2017-09-12] MEDS ORDERED: FOSPHENYTOIN 1,000 MG.PE in SODIUM CHLORIDE 0.9% 250 ML IV ONE (06:38)
[2017-09-12] MEDS: ZINC OXIDE PASTE 113 GM TUBE TOP SCH ×2 (08:42→21:01)
[2017-09-12] MEDS: SODIUM CHLORIDE 0.9% 1,000 ML IV SCH ×2 (14:44→23:05)
[2017-09-12] MEDS: LEVOFLOXACIN INJ 750 MG in PREMIX 1 EACH IV SCH (23:06)
[2017-09-13] MEDS: DILTIAZEM INJ 100 MG in SODIUM CHLORIDE 0.9% 100 ML IV SCH ×2 (06:02→14:59)
[2017-09-13] MEDS: ZINC OXIDE PASTE 113 GM TUBE TOP SCH ×2 (08:48→21:51)
[2017-09-13] MEDS: SODIUM CHLORIDE 0.9% 1,000 ML IV SCH (14:58)
[2017-09-13] MEDS ORDERED: levETIRAcetam 250 MG TABLET PO SCH (21:00)
[2017-09-13] MEDS ORDERED: CIPROFLOXACIN 250 MG TABLET PO SCH (21:00)
[2017-09-13] MEDS: CIPROFLOXACIN INJ 200 MG in PREMIX 1 EACH IV SCH (22:34)
[2017-09-14] MEDS: DILTIAZEM INJ 100 MG in SODIUM CHLORIDE 0.9% 100 ML IV SCH (04:29)
[2017-09-14] MEDS: SODIUM CHLORIDE 0.9% 1,000 ML IV SCH (06:46)
[2017-09-14] MEDS: CIPROFLOXACIN INJ 200 MG in PREMIX 1 EACH IV SCH (09:00)
[2017-09-14] MEDS: ZINC OXIDE PASTE 113 GM TUBE TOP SCH (09:00)
[2017-09-14 15:59] VITALS: BP 132/56
== END 2017-09-14 19:21 | disposition hospice, inpatient (51) | DRG 871 ==
LOC: EDUNIT# → EDBD → N.ED 17:52 → N.EDINP 21:21 → SUATTDRO 21:21 → N.5E 23:21 → N.TELES 09-09 23:38
PROVIDERS: ADMIT Family Medicine; ATTEND Internal Medicine Geriatric Medicine